=== PATIENT | female | born 1965 | race Caucasian/White ===

== ENCOUNTER 2016-05-05 13:20 | Emergency (ER) | payer MEDICAID, OTHER ==
[~2016-05-05] VITALS: Wt 72.0 kg
--- NOTE | 2016-05-05 14:03 | ERD ---
ER Documentation Chief Complaint Date/Time DATE: 05/05/16 TIME: 14:01 Chief Complaint VAG BLEED X 2 WEEKS DENIES PREG; SENT BY MD FOR LOW H/H HPI This a 50-year-old female who presents to the emergency department today for further evaluation after being sent here to the emergency room by [facility] [place] for vaginal bleeding for the past 2 weeks and low hemoglobin. Patient states that yesterday she felt dizzy and fell. States she has had a but no hysterectomy. States that she gets her menstrual cycle every month for approximately 4 days. States that on 22 April she got her menstrual cycle and has had continued intermittent bleeding since that time.Denies any dizziness currently. Denies any fevers or chills. ROS All systems reviewed and are negative except as per history of present illness. Medications Home Meds Active Scripts Docusate Sodium* (Colace*) 100 Mg Capsule, 100 MG PO TID, #60 CAP Prov:HARPER SHEPARD PA-C 05/05/16 Ferrous Sulfate* (Ferrous Sulfate*) 325 Mg Tabec, 325 MG PO BID for 30 Days, TAB Prov:HARPER SHEPARD PA-C 05/05/16 PMhx/Soc Medical and Surgical Hx: pt denies Medical Hx, pt denies Surgical Hx Hx Alcohol Use: No Hx Substance Use: No Hx Tobacco Use: No Smoking Status: Never smoker Physical Exam Vitals Vital Signs Date Time Temp Pulse Resp B/P Pulse Ox O2 Delivery O2 Flow Rate FiO2 05/05/16 13:24 98.0 80 18 141/60 99 Physical Exam Const: No acute distress Head: Atraumatic Eyes: Normal Conjunctiva ENT: Normal External Ears, Nose and Mouth. Neck: Full range of motion..~ No meningismus. Resp: Clear to auscultation bilaterally Cardio: Regular rate and rhythm, no murmurs Abd: Soft, suprapubic tenderness non distended. Normal bowel sounds. No right lower quadrant pain. No tenderness to McBurney's. No left lower quadrant pain. Skin: No petechiae or rashes Neur: Awake and alert Psych: Normal Mood and Affect Result Diagram: 05/05/16 1420 05/05/16 1420 Results 24 hrs Laboratory Tests Test 05/05/16 14:14 05/05/16 14:20 Bedside Urine pH (LAB) 5.5 Bedside Urine Protein (LAB) 1+ Bedside Urine Glucose (UA) Negative Bedside Urine Ketones (LAB) Negative Bedside Urine Blood 3+ Bedside Urine Nitrite (LAB) Negative Bedside Urine Leukocyte Esterase (L Trace White Blood Count 9.110^3/ul Red Blood Count 3.4810^6/ul Hemoglobin 8.8g/dl Hematocrit 27.8% Mean Corpuscular Volume 79.9fl Mean Corpuscular Hemoglobin 25.3pg Mean Corpuscular Hemoglobin Concent 31.7g/dl Red Cell Distribution Width 13.3% Platelet Count 43016^3/UL Mean Platelet Volume 10.8fl Neutrophils % 71.7% Lymphocytes % 19.3% Monocytes % 7.6% Eosinophils % 0.5% Basophils % 0.5% Nucleated Red Blood Cells % 0.0/100WBC Neutrophils # 6.510^3/ul Lymphocytes # 1.810^3/ul Monocytes # 0.710^3/ul Eosinophils # 0.110^3/ul Basophils # 0.110^3/ul Nucleated Red Blood Cells # 0.010^3/ul Sodium Level 140mmol/L Potassium Level 3.8mmol/L Chloride Level 102mmol/L Carbon Dioxide Level 26mmol/L Anion Gap 16 Blood Urea Nitrogen 11mg/dl Creatinine 0.69mg/dl Glucose Level 119mg/dl Calcium Level 8.8mg/dl Total Bilirubin 0.3mg/dl Direct Bilirubin 0.00mg/dl Indirect Bilirubin 0.3mg/dl Aspartate Amino Transf (AST/SGOT) 19IU/L Alanine Aminotransferase (ALT/SGPT) 19IU/L Alkaline Phosphatase 80IU/L Total Protein 6.9g/dl Albumin 4.0g/dl Globulin 2.90g/dl Albumin/Globulin Ratio 1.37 DIAGNOSTIC IMAGING REPORT Patient: JAMAAL ANTON : 1965 Age: 50 Sex: F MR #: [id number] DOS: 05/05/16 0000 Ordering MD: HARPER SHEPARD PA-C Location: [facility] Room/Bed: PROCEDURE: US Pelvis. CLINICAL INDICATION: 50-year-old female with vaginal bleeding for 2 weeks. TECHNIQUE: Multiple sonographic images of the pelvis were obtained utilizing a transabdominal and endovaginal technique. The images were reviewed on a PACS workstation. COMPARISON: No. FINDINGS: The uterus is visualized and measures 10.2 cm sagittal by 5 cm AP by 6.6 cm transverse.. The endometrial echo complex is increased in size and measures 2 cm. There is no evidence for free fluid. The right ovary has a normal echotexture and measures 2.2 x 1.5 x 2 cm. A 1.6 x 1.5 by 1.7 cm right ovarian cyst is present. There is free fluid in the cul-de-sac adjacent to the cervix. . The left ovary is not identified. IMPRESSION: 1. It thickening of the endometrial stripe which measures 2 cm. Endometrial hyperplasia or cancer might present this fashion. 2. Normal right ovary with a small amount of free fluid noted in the cul-de- sac. 3. The left ovary was not evaluated or visualized on this study. 4. 1.6 x 1.7 x 1.5 cm right ovarian cyst. RPTAT:AAJJ Physician Jenna Date Time Electronically viewed and signed by Mirza Mejia Physician on 05/05/2016 15:26 JM/ CC: HARPER SHEPARD PA-C Procedures/[facility] This 50-year-old female who presents to the emergency department today for vaginal bleeding for the past 2 weeks. Patient was sent here from her [facility] [place] for hemoglobin of 8.9. Patient indicated that she does still get her menstrual cycle monthly and denies having hysterectomy. States she has a history of . States that one year ago she had a Pap smear that was normal. Patient had some suprapubic tenderness on physical exam. I did obtain laboratory work as well as a ultrasound Laboratory work shows no elevated white blood cell count. Her hemoglobin is 8.8 and her hematocrit is 27.8. Her platelets are within normal limits. Electrolytes are within normal limits. Liver function is within normal limits. Urine test is negative UA shows trace leukocyte esterase and 3+ blood. Ultrasound shows thickening of the endometrial stripe which measures 2 cm. Endometrial hyperplasia or cancer might present in this fashion. There is a normal right ovary with a small amount of free fluid noted in the cul-de-sac. Left ovary was not visualized on the study. There is a 1.6 x 1.7 x 1.5 cm right ovarian cyst. Patient symptoms at this time most consistent with dysfunctional uterine bleeding versus endometrial hyperplasia as well as anemia. I have explained all results to the patient. I have discussed the patient with Dr. Laguerre does not feel that the patient meets criteria for transfusion at this time. Patient is not hypotensive and is otherwise well appearing. He has recommended that the patient be discharged home on iron with further evaluation and management by her primary care physician and [facility]. I have given her a list of [facility] to follow -up although patient did have a Pap smear one year ago that was normal and I have instructed her to follow back up with that physician or ask for referral to [facility].. At this time the patient is stable for discharge and outpatient management. Patient should follow up with their PCP in the next 1-2 days. They may return to the emergency department sooner for any persistent or worsening of symptoms. Patient and son understood and agreed with the plan. Departure Diagnosis: Primary Impression: Vaginal bleeding Additional Impression: Anemia Anemia type: unspecified type Qualified Code: D64.9 - Anemia, unspecified type Condition: HARPER Feliciano PA-C May 05, 2016 14:03
[2016-05-05 14:16] LABS: URINE BLOOD (Dip) POC 3+ (NEGATIVE)
[2016-05-05 14:36] LABS: ADD SCAN DIFF NO
[2016-05-05 14:38] LABS: BASOPHIL # 0.1 10^3/ul (0.0-0.1); BASOPHILS % 0.5 % (0.0-2.0); EOSINOPHILS # 0.1 10^3/ul (0.0-0.5); EOSINOPHILS % 0.5 % (0.0-7.0); HEMATOCRIT 27.8 % (37.0-47.0); HEMOGLOBIN 8.8 g/dl (12.0-16.0); LYMPHOCYTES # 1.8 10^3/ul (0.8-2.9); LYMPHOCYTES % 19.3 % (15.0-51.0); MEAN CORPUSCULAR HEMOGLOBIN 25.3 pg (29.0-33.0); MEAN CORPUSCULAR HGB CONC 31.7 g/dl (32.0-37.0); MEAN CORPUSCULAR VOLUME 79.9 fl (82.0-101.0); MEAN PLATELET VOLUME 10.8 fl (7.4-10.4); MONOCYTE # 0.7 10^3/ul (0.3-0.9); MONOCYTES % 7.6 % (0.0-11.0); NEUTROPHIL # 6.5 10^3/ul (1.6-7.5); NEUTROPHILS % 71.7 % (39.0-77.0); PLATELET COUNT 297 10^3/UL (140-415); RED BLOOD COUNT 3.48 10^6/ul (4.20-5.40); RED CELL DISTRIBUTION WIDTH 13.3 % (11.5-14.5); WHITE BLOOD COUNT 9.1 10^3/ul (4.8-10.8)
[2016-05-05 14:52] LABS: POTASSIUM 3.8 mmol/L (3.5-5.1)
[2016-05-05 14:54] LABS: BILIRUBIN,INDIRECT 0.3 mg/dl (0-1.1); BILIRUBIN,TOTAL 0.3 mg/dl (0.2-1.3); CREATININE 0.69 mg/dl (0.44-1.00)
[2016-05-05 14:55] LABS: ALBUMIN/GLOBULIN RATIO 1.37; CALCIUM 8.8 mg/dl (8.4-10.2); TOTAL PROTEIN 6.9 g/dl (6.1-8.1)
--- NOTE | 2016-05-05 15:26 | RADRPT ---
PROCEDURE: US Pelvis. CLINICAL INDICATION: 50-year-old female with vaginal bleeding for 2 weeks. TECHNIQUE: Multiple sonographic images of the pelvis were obtained utilizing a transabdominal and endovaginal technique. The images were reviewed on a PACS workstation. COMPARISON: No. FINDINGS: The uterus is visualized and measures 10.2 cm sagittal by 5 cm AP by 6.6 cm transverse.. The endomet rial echo complex is increased in size and measures 2 cm. There is no evidence for free fluid. The r ight ovary has a normal echotexture and measures 2.2 x 1.5 x 2 cm. A 1.6 x 1.5 by 1.7 cm right ovari an cyst is present. There is free fluid in the cul-de-sac adjacent to the cervix. . The left ovary is not identified. IMPRESSION: 1. It thickening of the endometrial stripe which measures 2 cm. Endometrial hyperplasia or cancer might present this fashion. 2. Normal right ovary with a small amount of free fluid noted in the cul-de-sac. 3. The left ovary was not evaluated or visualized on this study. 4. 1.6 x 1.7 x 1.5 cm right ovarian cyst. RPTAT:AAJJ Physician Jenna Date Time Electronically viewed and signed by Physician Jenna on 05/05/2016 15:26 NENA/
[2016-05-05] MEDS ORDERED: FER325 PO (15:42)
[2016-05-05] MEDS ORDERED: DOCU-144 PO (15:43)
[2016-05-05 16:10] VITALS: BP 126/68; PULSE 76; RESP 19; TEMP 98.4
== END 2016-05-05 16:11 | disposition home or self-care (01) ==
LOC: FTE 13:20
DX: N93.9 Abnormal uterine and vaginal bleeding, unspecified (principal); D64.9 Anemia, unspecified
CPT/HCPCS: 76830; 76856; 80053; 81003; 85025; Z7502